=== PATIENT | female | born 1945 | race Caucasian/White ===

== ENCOUNTER 2025-07-01 19:20 | Emergency (ER) | payer MEDICARE, OTHER ==
[2025-07-01] MEDS: Midazolam 1 MG/ML 2 ML SDV ONE (19:38)
[2025-07-01 19:55] LABS: BASOPHILS PERCENT AUTO 0.5 % (0.0-1.0); EOSINOPHILS PERCENT AUTO 1.1 % (1.0-3.0); LYMPHOCYTES PERCENT AUTO 45.4 % (20.5-50.1); MONOCYTES PERCENT AUTO 7.2 % (2-8); NEUTROPHILS PERCENT AUTO 45.8 % (42.2-75.2); PLATELET COUNT,PLT 182 10^3/uL (150-450); RED BLOOD CELL COUNT 4.10 10^6/uL (4.2-5.4); WHITE BLOOD CELL COUNT,WBC 6.6 10^3/uL (5.0-10.0)
[2025-07-01] MEDS: Midazolam 1 MG/ML 2 ML SDV IVPUSH ONE ×2 (20:04→22:09)
[2025-07-01 20:07] LABS: A/G RATIO 1.03; ALANINE AMINOTRANSFERASE,ALT 27 U/L (14-59); ASPARTATE AMNIOTRANSFERASE,AST 26 U/L (15-37); BILIRUBIN TOTAL 0.5 mg/dL (0.2-1.0); BLOOD UREA NITROGEN,BUN 18 mg/dL (7-18); CARBON DIOXIDE,CO2 20 mmol/L (21-32); CHLORIDE,CL 102 mmol/L (98-107); CREATININE 0.85 mg/dL (0.55-1.02); ESTIMATED GFR 70 mL/min (>=60); GLUCOSE RANDOM 141 mg/dL (70-99); POTASSIUM,K 4.0 mmol/L (3.5-5.1); PROTEIN TOTAL,TP 6.5 g/dL (6.4-8.2); SODIUM,NA 137 mmol/L (136-145)
[2025-07-01] MEDS ORDERED: Lactated Ringers 1,000 ML IV SCH (20:15)
[2025-07-01] MEDS ORDERED: Heparin Sodium/0.45% NaCl 25,000 UNITS/500 ML BAG IV SCH (21:00)
[2025-07-01 21:03] LABS: INR 1.1 (0.9-1.2)
[2025-07-01 21:23] LABS: PTT,PARTIAL THROMBOPLSTIN TIME 22.5 SEC (22.0-34.0)
[2025-07-01 21:33] LABS: APPEARANCE,URINE CLEAR (CLEAR); GLUCOSE,URINE NEGATIVE (NEGATIVE); OCCULT BLOOD,URINE NEGATIVE (NEGATIVE)
[2025-07-01 21:40] LABS: EPITHELIAL CELLS,URINE OCCASIONAL /HPF (NOT SEEN)
[2025-07-01] MEDS: Heparin Sodium/0.45% NaCl 500 ML ONE (22:06)
[2025-07-01] MEDS: Heparin Sodium 5,000 Units/ML Vial IVPUSH ONE (22:08)
[2025-07-01 22:30] VITALS: PULSE 50
[2025-07-01 22:32] VITALS: BP 211/65
== END 2025-07-01 21:20 ==
LOC: DL.ED 19:20
DX: I99.8 Other disorder of circulatory system (principal); Z79.899 Other long term (current) drug therapy
CPT/HCPCS: 36415; 71045; 72100; 80053; 81001; 83605; 83735; 84484; 85025; 85610; 85730; 93010; 96361; 96374; 96375; 96376; 99284; 99285; J1644; J2250; J2270; J7030